=== PATIENT | female | born 1980 | race Caucasian/White ===

== ENCOUNTER 2023-08-21 13:12 | Emergency (ER) | payer SELFPAY | END 2023-08-21 14:10 | LOC: JD.ED 13:12 | DX: F10.920 Alcohol use, unspecified with intoxication, uncomplicated (principal); Y90.9 Presence of alcohol in blood, level not specified | CPT/HCPCS: 99284 ==

== ENCOUNTER 2023-08-22 02:26 | Inpatient (IN) | payer SELFPAY ==
[2023-08-22] MEDS: Sodium Chloride 0.9% 1,000 ML IV ONE ×2 (02:50→04:50)
[2023-08-22] MEDS: Ondansetron 4 MG/2 ML SDV IVPUSH ONE ×2 (02:50→08:10)
[2023-08-22 02:52] LABS: BASOPHILS ABSOLUTE AUTO 0.1 K/mm3 (0.0-0.2); BASOPHILS PERCENT AUTO 0.7 % (0.0-1.0); EOSINOPHILS ABSOLUTE AUTO 0.1 K/mm3 (0.0-0.4); EOSINOPHILS PERCENT AUTO 1.1 % (0.0-6.0); HEMATOCRIT 41.4 % (37.0-47.0); IMMATURE GRAN ABSOLUTE AUTO 0.03 K/mm3 (0.00-0.05); IMMATURE GRAN PERCENT AUTO 0.3 % (0.0-0.4); LYMPHOCYTES ABSOLUTE AUTO 3.4 K/mm3 (1.0-4.8); LYMPHOCYTES PERCENT AUTO 37.4 % (24.0-44.0); MEAN CORPUSCULAR HEMOGLOBIN 33.3 pg (28.0-32.0); MEAN CORPUSCULAR HGB CONC 33.8 g/dl (32.0-36.0); MEAN CORPUSCULAR VOLUME 98.6 fl (83.0-99.0); MONOCYTES ABSOLUTE AUTO 0.5 K/mm3 (0.0-0.8); MONOCYTES PERCENT AUTO 5.4 % (0.0-8.0); NEUTROPHILS PERCENT AUTO 55.1 % (41.0-71.0); PLATELET COUNT,PLT 269 K/mm3 (150-400); WHITE BLOOD CELL COUNT,WBC 9.06 K/mm3 (3.9-11.3)
[2023-08-22 03:05] LABS: INR 1.1; PROTHROMBIN TIME 11.7 SECONDS (9.7-12.0)
[2023-08-22 03:06] LABS: PTT,PARTIAL THROMBOPLSTIN TIME 26.3 SECONDS (21.7-31.4)
[2023-08-22] MEDS: LORazepam 2 MG/ML SDV IVPUSH ONE (03:15)
[2023-08-22] MEDS: levETIRAcetam 1,500 MG in Sodium Chloride 0.9% 100 ML IV ONE (03:16)
[2023-08-22] MEDS: chlordiazePOXIDE 25 MG Cap PO ONE (03:16)
[2023-08-22 03:21] LABS: ALBUMIN 3.5 g/dl (3.4-5.0); ANION GAP 14.2 (5-15); BILIRUBIN TOTAL 0.6 mg/dL (0.2-1.0); CALCIUM 8.7 mg/dL (8.5-10.1); CREATININE 0.6 mg/dL (0.55-1.02); EST CRCL DRUG DOSING (CG) 106.55 mL/min; ETHANOL BLOOD MEDICAL 0.06 gm% (0.00); MAGNESIUM 1.7 mg/dL (1.8-2.4); POTASSIUM,K 4.2 mEq/L (3.5-5.1); PROTEIN TOTAL,TP 6.9 g/dl (6.4-8.2)
[2023-08-22 08:11] LABS: APPEARANCE,URINE CLOUDY (Clear); BILIRUBIN,URINE NEGATIVE (Negative); COLOR,URINE YELLOW (Yellow); GLUCOSE,URINE NEGATIVE (Negative); KETONES,URINE NEGATIVE (Negative); LEUKOCYTE ESTERASE,URINE 3+ (Negative); NITRITE,URINE NEGATIVE (Negative); OCCULT BLOOD,URINE 1+ (Negative); PROTEIN,URINE 1+ (Negative)
[2023-08-22] MEDS: Sodium Chloride 0.9% 1,000 ML IV SCH (08:15)
[2023-08-22 08:26] LABS: BARBITURATE SCREEN,URINE NEGATIVE (CUTOFF=200); BENZODIAZEPINES SCREEN,URINE PRESUMPTIVE POSITIVE (CUTOFF=150); BUPRENORPHINE SCREEN,URINE NEGATIVE (CUTOFF=10); METHADONE SCREEN, URINE NEGATIVE (CUTOFF=200); METHAMPHETAMINES SCREEN, URINE NEGATIVE (CUTOFF=500); OXYCODONE SCREEN,URINE NEGATIVE (CUT0FF=100); THC SCREEN,URINE 20 NG/ML NEGATIVE (CUTOFF=50)
[2023-08-22 08:29] LABS: AMPHETAMINES SCREEN, URINE NEGATIVE (CUTOFF=500)
[2023-08-22] MEDS: Sulfamethoxazole/Trimethoprim 800-160 MG Tab PO ONE (08:29)
[2023-08-22 08:41] LABS: BACTERIA,URINE MANY /hpf (FEW); MUCUS,URINE MODERATE /hpf (FEW); WBC CLUMPS,URINE FEW /hpf (NOT SEEN); WBC,URINE 30-40 /hpf (0-5)
[2023-08-22] MEDS: Magnesium Sulfate/Water 2 GM in Premix Bag 1 BAG IV ONE (09:37)
[2023-08-22] MEDS ORDERED: Docusate Sodium 100 MG Cap PO PRN (09:41)
[2023-08-22] MEDS ORDERED: LORazepam 2 MG/ML SDV IVPUSH PRN (09:50)
[2023-08-22] MEDS: Thiamine 100 MG Tab PO SCH (10:21)
[2023-08-22] MEDS: chlordiazePOXIDE 10 MG Cap PO ONE (10:21)
[2023-08-22] MEDS ORDERED: chlordiazePOXIDE 25 MG Cap PO SCH (10:30)
[2023-08-22] MEDS: chlordiazePOXIDE 25 MG Cap PO SCH (10:42)
[2023-08-22] MEDS: Nicotine 14 MG/24 Hr Patch TRDERM SCH (12:40)
[2023-08-22] MEDS: LORazepam 1 MG Tab PO ONE (16:13)
[2023-08-22] MEDS: levETIRAcetam 500 MG Tab PO SCH (21:58)
[2023-08-22] MEDS: cloNIDine 0.1 MG Tab PO SCH (21:59)
[2023-08-23] MEDS: Ondansetron 4 MG/2 ML SDV IV PRN (03:30)
[2023-08-23 04:40] LABS: BASOPHILS PERCENT AUTO 0.4 % (0.0-1.0); EOSINOPHILS ABSOLUTE AUTO 0.1 K/mm3 (0.0-0.4); EOSINOPHILS PERCENT AUTO 1.5 % (0.0-6.0); HEMATOCRIT 36.7 % (37.0-47.0); HEMOGLOBIN 12.8 gm/dl (12.0-16.0); IMMATURE GRAN ABSOLUTE AUTO 0.02 K/mm3 (0.00-0.05); IMMATURE GRAN PERCENT AUTO 0.3 % (0.0-0.4); LYMPHOCYTES ABSOLUTE AUTO 2.7 K/mm3 (1.0-4.8); LYMPHOCYTES PERCENT AUTO 40.1 % (24.0-44.0); MEAN CORPUSCULAR HEMOGLOBIN 34.1 pg (28.0-32.0); MEAN CORPUSCULAR HGB CONC 34.9 g/dl (32.0-36.0); MEAN CORPUSCULAR VOLUME 97.9 fl (83.0-99.0); MEAN PLATELET VOLUME 9.2 fl (9.4-12.3); MONOCYTES ABSOLUTE AUTO 0.4 K/mm3 (0.0-0.8); MONOCYTES PERCENT AUTO 5.1 % (0.0-8.0); NEUTROPHILS ABSOLUTE AUTO 3.6 K/mm3 (1.8-7.7); NEUTROPHILS PERCENT AUTO 52.6 % (41.0-71.0); PLATELET COUNT,PLT 181 K/mm3 (150-400); RED BLOOD CELL COUNT 3.75 M/mm3 (4.10-5.30)
[2023-08-23 05:13] LABS: ALBUMIN 2.9 g/dl (3.4-5.0); ANION GAP 13.7 (5-15); BILIRUBIN TOTAL 0.9 mg/dL (0.2-1.0); BUN/CREATININE RATIO 11.3 (14-18); CALCIUM 8.3 mg/dL (8.5-10.1); CREATININE 0.8 mg/dL (0.55-1.02); EST CRCL DRUG DOSING (CG) 79.91 mL/min; MAGNESIUM 1.6 mg/dL (1.8-2.4); PHOSPHORUS 3.2 mg/dL (2.6-4.7); POTASSIUM,K 3.7 mEq/L (3.5-5.1); PROTEIN TOTAL,TP 5.8 g/dl (6.4-8.2)
[2023-08-23] MEDS: Magnesium Sulfate/Water 4 GM in Premix Bag 1 BAG IV ONE (08:49)
[2023-08-23] MEDS: DULoxetine 30 MG Cap PO SCH (08:51)
[2023-08-23] MEDS: Folic Acid 1 MG Tab PO SCH (08:51)
[2023-08-23] MEDS: Propranolol 10 MG Tab PO SCH (08:52)
[2023-08-23] MEDS: Pantoprazole 40 MG Tab.CR PO SCH (08:52)
[2023-08-23] MEDS: Ondansetron 4 MG Tab.DIS PO PRN (11:03)
[2023-08-23] MEDS: Acetaminophen 325 MG Tab PO PRN (11:04)
[2023-08-23] MEDS: chlordiazePOXIDE 25 MG Cap PO SCH (12:39)
[2023-08-23] MEDS: LORazepam 1 MG Tab PO ONE (18:49)
[2023-08-23] MEDS: LORazepam 2 MG/ML SDV IVPUSH ONE (22:26)
[2023-08-23] MEDS: PHENobarbital Sodium 65 MG/ML SDV IVPUSH ONE (22:29)
[2023-08-24 05:50] LABS: BASOPHILS PERCENT AUTO 0.6 % (0.0-1.0); EOSINOPHILS ABSOLUTE AUTO 0.1 K/mm3 (0.0-0.4); EOSINOPHILS PERCENT AUTO 1.7 % (0.0-6.0); HEMATOCRIT 34.6 % (37.0-47.0); HEMOGLOBIN 11.9 gm/dl (12.0-16.0); IMMATURE GRAN ABSOLUTE AUTO 0.03 K/mm3 (0.00-0.05); IMMATURE GRAN PERCENT AUTO 0.4 % (0.0-0.4); LYMPHOCYTES ABSOLUTE AUTO 2.1 K/mm3 (1.0-4.8); LYMPHOCYTES PERCENT AUTO 30.2 % (24.0-44.0); MEAN CORPUSCULAR HEMOGLOBIN 33.2 pg (28.0-32.0); MEAN CORPUSCULAR HGB CONC 34.4 g/dl (32.0-36.0); MEAN CORPUSCULAR VOLUME 96.6 fl (83.0-99.0); MEAN PLATELET VOLUME 9.7 fl (9.4-12.3); MONOCYTES ABSOLUTE AUTO 0.3 K/mm3 (0.0-0.8); MONOCYTES PERCENT AUTO 4.4 % (0.0-8.0); NEUTROPHILS ABSOLUTE AUTO 4.4 K/mm3 (1.8-7.7); NEUTROPHILS PERCENT AUTO 62.7 % (41.0-71.0); PLATELET COUNT,PLT 169 K/mm3 (150-400); RED BLOOD CELL COUNT 3.58 M/mm3 (4.10-5.30); WHITE BLOOD CELL COUNT,WBC 7.05 K/mm3 (3.9-11.3)
[2023-08-24 06:09] LABS: ALBUMIN 2.8 g/dl (3.4-5.0); ANION GAP 11.5 (5-15); BILIRUBIN TOTAL 0.4 mg/dL (0.2-1.0); BUN/CREATININE RATIO 13.8 (14-18); CALCIUM 8.4 mg/dL (8.5-10.1); CREATININE 0.8 mg/dL (0.55-1.02); EST CRCL DRUG DOSING (CG) 79.91 mL/min; MAGNESIUM 1.7 mg/dL (1.8-2.4); POTASSIUM,K 3.5 mEq/L (3.5-5.1); PROTEIN TOTAL,TP 5.7 g/dl (6.4-8.2)
[2023-08-24] MEDS: Magnesium Sulfate/Water 4 GM in Premix Bag 1 BAG IV ONE (08:31)
[2023-08-24] MEDS: Gabapentin 300 MG Cap PO SCH (12:55)
[2023-08-24] MEDS: cloNIDine 0.1 MG Tab PO SCH (13:00)
[2023-08-24] MEDS ORDERED: chlordiazePOXIDE 25 MG Cap PO SCH (18:45)
[2023-08-25] MEDS ORDERED: chlordiazePOXIDE 25 MG Cap PO ONE (18:45)
== END 2023-08-24 14:57 | disposition left against medical advice (07) | DRG 894 ==
LOC: JD.ED 02:26 → JD.MS 08:58 → JD.ICU 08-23 22:25
PROVIDERS: ADMIT Internal Medicine; ATTEND Internal Medicine
DX: F10.229 Alcohol dependence with intoxication, unspecified (principal); F10.239 Alcohol dependence with withdrawal, unspecified; I10 Essential (primary) hypertension; F17.210 Nicotine dependence, cigarettes, uncomplicated; R82.71 Bacteriuria; E83.42 Hypomagnesemia; F41.9 Anxiety disorder, unspecified; R56.9 Unspecified convulsions; Z79.899 Other long term (current) drug therapy; Z90.49 Acquired absence of other specified parts of digestive tract
CPT/HCPCS: 36415; 80053; 80306; 80307; 81001; 81025; 83690; 83735; 84100; 85025; 85610; 85730; 87086; 96361; 96365; 96375; 96376; 99285-25; A9270-GY; J1953; J2060; J2405; J2560; J3475; J3490; J7030